=== PATIENT | male | born 1955 | race Caucasian/White ===

== ENCOUNTER → 2018-02-02 10:47 | Outpatient (CLI) | payer BC, SELFPAY ==
--- NOTE | 2018-02-02 10:55 | XR_ITS ---
XR chest 2V HISTORY: ITS.REASON: COUGH ORDERING PHYSICIAN: Suha Abernathy MD PATIENT AGE: 62 years Technique: PA and lateral chest COMPARISON: None available in PACS FINDINGS: Lungs clear no active disease. Heart normal size with donaldo and mediastinal structures satisfactory. No lesions. No masses. No pleural effusion or pleural findings. Chest wall intact. T-spine. No compression fractures. Mild anterior marginal osteophytes with minor degenerative changes. Very mild dextrocurvature T-spine noted..No acute bony abnormalities. IMPRESSION: Lungs clear. No active disease in the chest.
--- NOTE | 2018-02-02 10:55 | XR_ITS ---
XR elbow RT min 3V Ordering Physician: Suha Abernathy MD Patient Age: 62 years: Male HISTORY: ITS.REASON: RT ELBOW PAIN TECHNIQUE: 3 views right elbow COMPARISON :None FINDINGS . Joint spaces well-maintained. Radial head appears intact. No joint effusion. Normal anterior fat pad. . Minimal thin 5 mm length calcification extends longitudinally from the margin lateral epicondyle- May reflect minor old lateral epicondylitis. Clinical correlation required. This is best seen on the oblique view and sacrum is a similar image. Medial epicondyles unremarkable. Ulna and olecranon unremarkable -------IMPRESSION: 1. No acute findings. No fracture. No joint effusion 2. Minimal thin calcification from lateral epicondyle, may reflect old lateral epicondylitis
== END ==
PROVIDERS: PCP Family Medicine; Visit Provider Family Medicine
DX: R05 Cough (principal); M25.521 Pain in right elbow
CPT/HCPCS: 71046; 73080

== ENCOUNTER → 2018-06-01 16:08 | Outpatient (POV) | payer BC, SELFPAY | PROVIDERS: Visit Provider Family Medicine | DX: Z00.00 Encounter for general adult medical examination without abnormal findings (principal) ==

== ENCOUNTER → 2019-08-15 12:28 | Outpatient (CLI) | payer BC, SELFPAY ==
--- NOTE | 2019-08-15 12:32 | XR_ITS ---
PROCEDURE: XR HIP LT 2-3V W/PELVIS CLINICAL INDICATION: LT HIP PAIN COMPARISON: XR FEMUR LT 2V from 08/15/2019 FINDINGS: No acute fracture or dislocation is evident. There are minimal osteoarthritic changes of both hips, left SI joint, and there are facet arthritic changes at L4-5 greater on the right. There is a cystic area which appears intramedullary in the proximal aspect of the femur just distal to the intertrochanteric region which measures approximately 3.3 by 2 cm. The inferior margins are somewhat ill-defined with fairly well-defined superior margins. On the abduction view, there is a well-circumscribed lobular calcific density along the proximal femoral shaft anteriorly at 1.6 cm. IMPRESSION: 1. Minimal osteoarthritic change of the hips. No acute fracture. 2. Intramedullary cystic area of the proximal femur with ill-defined margins inferiorly. 3. Lobular calcific density along the anterior aspect of the proximal femur. This is within the adjacent soft tissues. The bony cortex appears intact at this region. 4. Suggest further evaluation with MRI without and with contrast. CT may also add further information. Dictated by: Carlos De Oliveira MD 08/15/2019 13:04 Electronically signed by Carlos De Oliveira MD in [place] 08/15/2019 13:04
== END ==
PROVIDERS: PCP Family Medicine; Visit Provider Family Medicine
DX: M25.552 Pain in left hip (principal)
CPT/HCPCS: 73502; 73552

== ENCOUNTER → 2019-08-16 11:08 | Outpatient (CLI) | payer BC, SELFPAY ==
--- NOTE | 2019-08-16 | CT_ITS ---
PROCEDURE: CT HIP LT WO/W CON CLINICAL HISTORY: ABN X-RAY Left-sided hip pain. Abnormal radiograph, possible lytic/sclerotic lesion of femur COMPARISON: XR HIP LT 2-3V W/PELVIS from 08/15/2019 XR FEMUR LT 2V from 08/15/2019 TECHNIQUE: Axial images are obtained without and with 75 mL Optiray 350 IV Axial images obtained with sagittal and coronal reformats. All CT scans at the facility use one or more dose reduction, viz: automated exposure control, ma/kV adjustment per patient size (including targeted exams where dose is matched to indication, i.e. head), or iterative reconstruction technique. FINDINGS: No acute fracture or dislocation is evident. There are minor osteoarthritic changes of both hips. No acute fracture or dislocation is evident. There are several small well-circumscribed cystic lesions of the hips 1 in the right femoral neck at 9 mm and 1 in the left intertrochanteric region of the femur at 4 mm. These have well-defined sclerotic margins and are consistent with benign cortical defect. There is a lucent/lytic lesion in the proximal shaft of the left femur. This is intramedullary in nature measuring 2 cm AP, 1.9 cm transverse, and 2.7 cm cephalad caudad. Most of this lesion is well-circumscribed except for the anteromedial margin. This part of the lesion is less well-defined. No internal matrix is evident. No soft tissue component. In addition, there are amorphous calcifications in the periosteal region along the posterior aspect of the proximal left femur. This is at the linea Aspera region. There is a erosion of the posterior aspect of the femoral cortex at this area of calcification. This area of erosion at least involves the outer and mid aspect of the cortex and extends to the inner part of the cortex but may not involve the intramedullary region. Review of the opposite side also shows some calcification of the right proximal linea Aspera but not as extensive as the left side but with some minimal cortical erosive change. No soft tissue masses are evident. There is mild calcification of the left femoral artery and there are small lymph nodes in the left inguinal area. Scattered diverticular present within the sigmoid colon. IMPRESSION: 1. 2.7 x 2 x 1.9 cm lucent/lytic lesion of the proximal left femur corresponding to the radiographic abnormality.. This is not a clearly benign appearing lesion with some ill definition of the lesion anterior medially. There is a thin rim of sclerosis of the remaining lesion without obvious internal matrix.. This could represent a nonossifying fibroma. A more ominous process such as metastasis or myeloma is not excluded and follow-up is suggested. Suggest MRI without and with contrast for further evaluation. 2. Para osteal calcification with erosive change of the left linea aspera as described above which may represent calcific enthesopathy/enthesitis with less extensive involvement on the right as well. Suggest follow-up to confirm stability. Dictated by: Carlos De Oliveira MD 08/17/2019 11:12 Electronically signed by Carlos De Oliveira MD in [place] 08/17/2019 11:12
[2019-08-16 11:29] LABS: Blood Urea Nitrogen 30 mg/dL (7-18); Creatinine,Serum 1.11 mg/dL (0.70-1.30); Estimated Glomerular Filt Rate 67 ml/min (>60); GFR (African American) 81 ML/MIN (>60)
== END ==
PROVIDERS: PCP Family Medicine; Visit Provider Family Medicine
DX: Z01.818 Encounter for other preprocedural examination (principal); R93.89 Abnormal findings on diagnostic imaging of other specified body structures; M25.552 Pain in left hip
CPT/HCPCS: 36415; 73702; 82565; 84520; Q9967

== ENCOUNTER → 2019-08-17 11:39 | Outpatient (CLI) | payer BC, SELFPAY ==
--- NOTE | 2019-08-17 11:42 | MR_ITS ---
PROCEDURE: MR HIP LT WO/W CON CLINICAL INDICATION: BONE MASS, left hip pain, abnormal radiograph and CT scan showing lytic and sclerotic lesion of the left proximal femur COMPARISON: CT HIP LT WO/W CON from 08/16/2019 TECHNIQUE: Routine multiplanar multi echo sequences are performed without and with gadolinium enhancement. FINDINGS: Once again, there is noted to be a fairly well-circumscribed lesion within the proximal shaft of the femur at 2.7 by 1.9 cm. This has homogeneous increased T1 signal. As seen on the CT scan the anterior medial margins are not as sharp as the remaining margins. No soft tissue component is evident. This is well-circumscribed and may show some minimal enhancement inferiorly. Stir images also show slight increase in signal. This is low density on the CT scan superiorly and does demonstrate fat suppression on the T1 fat suppressed images and may represent an intraosseous lipoma. Along the posterior and proximal aspect of the femoral shaft there are small foci of decreased T1 and T2 signal along the linea as para in the para cortical region of the proximal femur consistent with the calcifications as noted on the CT scan. A small area of cortical erosion is present within the posterior femoral cortex at this area as well. This does show increase in T2 signal in the surrounding soft tissues consistent with inflammatory changes. This also shows some in enhancement in the surrounding soft tissues. No acute fracture or dislocation is evident. IMPRESSION: 1. Abnormal MRI of the left hip. There are 2 separate lesions. 2. 2.7 x 1.9 cm fairly well-circumscribed fatty lesion of the proximal femur as described on the CT report. This could represent an intraosseous lipoma. No soft tissue component is evident. The medial margins are somewhat obscured and there is some slight increased in T2 signal of this lesion with some minimal enhancement inferiorly. This is adjacent to the inflammatory process and the proximal femoral shaft posteriorly. The increased signal and mild enhancement could be related to that fact. Cannot completely exclude the possibility of a neoplastic process. An abscess is felt to be less likely. 3. Extra cortical calcification along the proximal aspect of the left linea aspera with some cortical erosion and surrounding inflammation which may represent calcific enthesophytis. This is similar to the CT findings. 4. Neither 1 of these lesions is clearly benign-appearing. Suggest orthopedic consult and close imaging follow-up. Suggest serum electrophoresis and sedimentation rate as well. Dictated by: Carlos De Oliveira MD 08/18/2019 15:57 Electronically signed by Carlos De Oliveira MD in [place] 08/18/2019 15:57
== END ==
PROVIDERS: PCP Family Medicine; Visit Provider Family Medicine
DX: M89.8X9 Other specified disorders of bone, unspecified site (principal)
CPT/HCPCS: 73723; A9576

== ENCOUNTER → 2019-12-30 10:18 | Outpatient (CLI) | payer BC, SELFPAY ==
--- NOTE | 2019-12-30 10:25 | XR_ITS ---
PROCEDURE: XR KNEE RT 3V CLINICAL INDICATION: RT KNEE PAIN COMPARISON: No exams were available for comparison FINDINGS: No fracture or dislocation. No lytic or blastic change. There is normal mineralization. The joint spaces are well-preserved. No significant degenerative/arthritic changes. No erosive changes evident. Other findings:There is increased density in the suprapatellar region consistent with knee joint effusion. There are small sclerotic foci along the distal shaft of the femur and may be due to small area of bone infarction. There is very minimal spurring along the posterior patella suggesting minimal osteoarthritic change. IMPRESSION: 1. Small suprapatellar effusion with suspected minimal osteoarthritic change of the patellofemoral joint 2. 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
== END ==
PROVIDERS: PCP Family Medicine; Referring Provider Family Medicine; Visit Provider Family Medicine
DX: M25.561 Pain in right knee (principal)
CPT/HCPCS: 73562

== ENCOUNTER → 2020-12-04 14:21 | Outpatient (POV) | payer BC, SELFPAY | DX: Z00.00 Encounter for general adult medical examination without abnormal findings (principal) ==

== ENCOUNTER → 2021-01-24 06:55 | Outpatient (CLI) | payer SELFPAY ==
--- NOTE | 2021-01-24 07:09 | CT_ITS ---
PROCEDURE: CT HEART W CALCIUM SCORE CLINICAL HISTORY: SCREENING COMPARISON: CR CXR2V XR chest 2V from 02/02/2018 TECHNIQUE: Axial images obtained with sagittal and coronal reformats. All CT scans at the facility use one or more dose reduction, viz: automated exposure control, ma/kV adjustment per patient size (including targeted exams where dose is matched to indication, i.e. head), or iterative reconstruction technique. FINDINGS: Coronary artery calcium score is 1011. Extensive calcific plaque burden with very high cardiovascular disease risk Incidental note is made of a small granuloma in the right middle lobe region and degenerative changes of the thoracic spine. An exophytic I so density projects off the left kidney posteriorly incompletely imaged measuring at least 2.7 cm and may represent a renal cyst IMPRESSION: Extensive calcific plaque burden with very high cardiovascular disease risk Dictated by: Carlos De Oliveira MD 01/24/2021 08:40 Carlos De Oliveira MD in [place] 01/24/2021 08:40
== END ==
PROVIDERS: PCP Family Medicine; Visit Provider Family Medicine
DX: Z13.6 Encounter for screening for cardiovascular disorders (principal)
CPT/HCPCS: 75571

== ENCOUNTER → 2021-05-24 08:33 | Outpatient (CLI) | payer OTHER, SELFPAY | PROVIDERS: PCP Family Medicine; Visit Provider Family Medicine | DX: Z20.822 Contact with and (suspected) exposure to COVID-19 (principal) | CPT/HCPCS: C9803; U0003; U0005 ==

== ENCOUNTER → 2025-06-25 07:42 | Outpatient (CLI) | payer MEDICARE, SELFPAY ==
--- OUTSIDE RECORDS SUMMARY | 2024-03-25 05:15 | XMS_ITS ---
Author Organization [facility] Address [address] [facility] [address] [place] [id number] Care Team Providers Care Last Putter Away Name Role Phone Lachelle Abernathy Primary Care Provider [facility] Unavailable [phone] Results Component Value Reference Range Notes CBC Venipuncture (in house) Reviewed date:03/27/2024 02:52:28 PM Interpretation: Performing Lab: Notes/Report: wbc 6.2 3.5 - 10 lymph 20.5% 15 - 50 mid 5.1% 2 - 15 gran 74.4% 35 - 80 rbc 4.78 3.5 - 5.5 hgb 14.7 11.5 - 16.5 hct 43.1 35 - 55 mcv 90.2 75 - 100 mch 30.7 25 - 35 mchc 34.0 31 - 38 platlet 104 100 - 400 P-Comprehensive Metabolic Pa justyn (CMP) Reviewed date:03/30/2024 08:21:42 AM Interpretation:bun 29 Performing Lab: Notes/Report: Test performed by [facility] , [address], [place] [address] Erik Man MD, Director Of Accounts Receivable CLIA: [id number] Sodium 144 135-145 mmol/L Potassium 4.6 3.5-5.3 mmol/L Chloride 108 97-108 mmol/L CO2 24 22-32 mmol/L Glucose 95 65-99 mg/dL BUN 29 8-23 mg/dL Creatinine 1.18 0.70-1.30 mg/dL Calcium 9.7 8.6-10.4 mg/dL eGFR by Creatinine 67 >59 mL/min/1.73m2 Protein 7.1 6.0-8.3 g/dL Albumin 4.6 3.5-5.3 g/dL Alkaline Phosphatase 70 40-129 IU/L ALT (SGPT) 23 <5-55 IU/L AST (SGOT) 24 <5-46 IU/L Bilirubin, Total 0.8 <0.2-1.2 mg/dL A/G Ratio 1.8 1.1-2.5 P-Lipid Panel Reviewed date:03/30/2024 08:21:43 AM Interpretation:hdl 39 Performing Lab: Notes/Report: Test performed by [facility], [address] , [address], [place] [address] Erik Man MD, Director Of Accounts Receivable CLIA: [id number] Cholesterol 88 <200 mg/dL Triglycerides 68 <150 mg/dL HDL Cholesterol 39 >39 mg/dL Cholesterol / HDL Ratio 2.26 0.00-4.99 Ratio Non-HDL Cholesterol 49 <130 mg/dL LDL Cholesterol (Calculation) 35 <130 mg/dL LDL Cholesterol Levels* Less than 100 mg/dL Optimal 100 to 129 mg/dL Near Optimal/ Above Optimal 130 to 159 mg/dL Borderline High 160 to 189 mg/dL High 190 mg/dL and above Very High * Categories as recommended by the 2004 ATPIII guidelines LDL/HDL Ratio 0.9 <3.3 Ratio LDL Cholesterol Patient History Test Date: 09/03/2022 LDL Results: 34 Units: mg/dL % Change: - Test Date: 09/07/2023 LDL Results: 32 Units: mg/dL % Change: -5% Test Date: 03/25/2024 LDL Results: 35 Units: mg/dL % Change: +9% Miscell Ref Lab Test Reviewed date:03/29/2024 09:02:57 AM Interpretation: Performing Lab: Notes/Report: Test Cancelled Test Cancelled Other P-Protein Electrophoresis (s maria ines) with Interpretation, rfx JANETTE Reviewed date:03/30/2024 08:21:43 AM Interpretation:Normal Performing Lab: Notes/Report: Test performed by [facility] [address] , [facility], [place] [address] Erik Man MD, Director Of Accounts Receivable CLIA: [id number] The original report may contain illustrative images, which are not display compatible on this electronic information system. Some pathology reports may include tabular data or cancer checklists which also can not be displayed. A copy of the original report incorporating such images is available and can be obtained upon request from client services. Protein 7.1 6.0-8.3 g/dL Albumin 4.50 3.55-5.01 g/dL Alpha 1 Globulin 0.20 0.19-0.46 g/dL Alpha 2 Globulin 0.60 0.48-1.05 g/dL Beta Globulin 0.90 0.48-1.10 g/dL Gamma Region 1.00 0.62-1.51 g/dL Protein Electrophoresis Interpretation SEE COMMENT No definite monoclon al immunoglobulins detected.Pathologist Reviewed NSK P-PSA Reviewed date:03/30/2024 08:21:43 AM Interpretation:6.3 Performing Lab: Notes/Report: Test performed by [facility] [address] [place] [address] , [address], [place] [address] Erik Man MD, Director Of Accounts Receivable CLIA: [id number] PSA 6.30 <4.00 ng/mL Please note this is an ultrasensitive PSA assay with a lower limit of detection of 0.014 ng/mL. This test is performed by the Kevin ECLIA methodology. Values obtained with different assay methods or kits cannot be directly compared. P-Protein Electrophoresis Reviewed date:03/29/2024 09:02:39 AM Interpretation: Performing Lab: Notes/Report: REASON FOR VISIT BLOOD WORK Problems Problem Type SNOMED Code ICD Code Onset Dates Problem Status W/U Status Risk Notes Problem Peripheral neuropathy (825275039) Peripheral neuropathy (G62.9) Active confirmed Encounters Encounter Location Date Provider Diagnosis [facility] [address] [facility] 36 [facility] [address] [place], [place] [id number] 03/25/2024 [facility] Dyslipidemia E78.5 ; Peripheral neuropathy G62.9 and Elevated PSA R97.20 Assessments Encounter Date Diagnosis (ICD Code) Assessment Notes Treatment Notes Treatment Clinical Notes Section Notes 03/25/2024 Dyslipidemia (ICD-10 - E78.5) 03/25/2024 Peripheral neuropathy (ICD-10 - G62.9) 03/25/2024 Elevated PSA (ICD-10 - R97.20) Plan Of Treatment No Information Progress Notes * Marquis BRYANTDOB:1 07/20/1954 (70 yo M)Acc No.[id number]:03/25/2024 Patient: Marquis PAIGE Provider: Vipul Seals M.D. :1955 A ge:68 Y S ex:Male Date:03/25/2024 Address:[address] [place], [place] [id number] Pcp:Lachelle Abernathy Subjective: * Chief Complaints: * 1 . BLOOD WORK. * Medical History: Objective: * Vitals: Assessment: * Assessment: 1. D yslipidemia - E78.5 (Primary) 2 . P eripheral neuropathy - G62.9 ? 3 . E levated PSA - R97.20 Plan: * Treatment: Value Reference Range A /G Ratio 1.8 1.1-2.5 - * A lbumin 4.6 3.5-5.3 - g/dL * A lkaline Phosphatase 70 40-129 - IU/L * A LT (SGPT) 23 <5-55 - IU/L * A ST (SGOT) 24 <5-46 - IU/L * B ilirubin, Total 0.8 <0.2-1.2 - mg/dL * B UN 29 H 8-23 - mg/dL * C alcium 9.7 8.6-10.4 - mg/dL * C hloride 108 97-108 - mmol/L * C O2 24 22-32 - mmol/L * C reatinine 1.18 0.70-1.30 - mg/dL * G lucose 95 65-99 - mg/dL * P otassium 4.6 3.5-5.3 - mmol/L * S odium 144 135-145 - mmol/L * P rotein 7.1 6.0-8.3 - g/dL * e GFR by Creatinine 67 >59 - mL/min/1.73m2 * Aimee Bryant 03/30/2024 8 :21:26 AM >reviewed ?LAB: P-Lipid Panel (Collection Date & Time - 03/25/2024 08:33 AM)?hdl 39* Value Reference Range C holesterol / HDL Ratio 2.26 0.00-4.99 - Ratio * C holesterol 88 <200 - mg/dL * H DL Cholesterol 39 L >39 - mg/dL * L DL Cholesterol (Calculation) 35 <130 - mg/d L * L DL/HDL Ratio 0.9 <3.3 - Ratio * N on-HDL Cholesterol 49 <130 - mg/dL * T riglycerides 68 <150 - mg/dL * Aimee Bryant 03/30/2024 8 :21:26 AM >reviewed 2.?Peripheral neuropathy?LAB: CBC Venipuncture (in house) (Collection Date & Time - 03/25/2024)* Value Reference Range w bc 6.2 3.5 - 10 * l ymph 20.5% 15 - 50 * m id 5.1% 2 - 15 * g ran 74.4% 35 - 80 * r bc 4.78 3.5 - 5.5 * h gb 14.7 11.5 - 16.5 * h ct 43.1 35 - 55 * m cv 90.2 75 - 100 * m ch 30.7 25 - 35 * m chc 34.0 31 - 38 * p latlet 104 100 - 400 * Judit Oneil 03/25/2024 8:58 :31 AM > , Provider reviewed results while patient in office. ?LAB: P-Protein Electrophoresis (Collection Date & Time - 03/29/2024)* see duplicate order 3.?Elevated PSA?LAB: P-PSA (Collection Date & Time - 03/25/2024 08:33 AM)?6.3* Value Reference Range P SA 6.30 H <4.00 - ng/mL * Aimee Bryant 03/30/2024 8 :21:26 AM >reviewed * Labs: * L ab: P-Protein Electrophoresis (serum) with Interpretation, rfx JANETTE (Collection Date & Time - 03/25/2024 08:33 AM) N ormal Value Reference Range P rotein Electrophoresis Interpretation SEE COMMENT - * A lpha 1 Globulin 0.20 0.19-0.46 - g/dL * A lpha 2 Globulin 0.60 0.48-1.05 - g/dL * A lbumin 4.50 3.55-5.01 - g/dL * B eta Globulin 0.90 0.48-1.10 - g/dL * G bobby Region 1.00 0.62-1.51 - g/dL * P rotein 7.1 6.0-8.3 - g/dL * [employer] IT support 03/28/2024 05:10:04 : This order was created by the Interface. Aimee Bryant 03/30/2024 8:21:26 AM >reviewed ?Lab: Miscell Ref Lab Test (Collection Date & Time - 03/25/2024 08:33 AM)* Value Reference Range T est Cancelled Test Cancelled - * Davi, IT support 03/28/2024 05:10:05 : This order was created by the Interface. * Procedure Codes: 8 5025 CBC WITH AUTO DIFF, 38151 VENIPUNCT, ROUTINE*, 25872 ASSAY OF SERUM PROTEINS * Images: Billing Information: * Visit Code: * Procedure Codes: 75665 CBC WITH AUTO DIFF. 23541 VENIPUNCT, ROUTINE*. 13528 ASSAY OF SERUM PROTEINS. * Electronic signature of Ekaterina Seals MD on 06/25/2025 at 07:45 AM EST Sign off status: Pending * Provider: Vipul Seals M.D. Date: 0 03/25/2024 Generated for Lisandra otoole/Marvin/Hubert on: 1 08/26/2024 07:45 AM EST
--- OUTSIDE RECORDS SUMMARY | 2024-05-12 02:50 | XMS_ITS ---
Author Organization [facility] [address] [facility] [address] [place] [id number] Care Team Providers Care Data Processing Clerk Name Role Phone Lachelle Abernathy Primary Care Provider REASON FOR VISIT FLU VAX Medications Medication SIG (Take, Route, Frequency, Duration) Notes Start Date End Date Status Cipro 500 MG 1 tab(s) orally ever y 12 hours 01/02/2019 Not-Taking Ciprofloxacin-dexAMETHason e 0.3-0.1 % 4 gtt in each affected ear 2 times a day; Duration: 7 day(s) 05/02/2018 Not-Taking Cefdinir 300 MG 1 cap(s) orally bid; Duration: 10 day(s) 09/14/2015 Not-Taking metroNIDAZOLE 500 MG 1 tab(s) orally 3 times a day 10/30/2019 Not-Taking Levaquin 750 MG 1 tab(s) orally ever y 24 hours 10/30/2019 Not-Taking Meloxicam 15 MG 1 tab(s) orally once a day; Duration: 30 day(s) 06/08/2019 Not-Taking Lomotil 2.5-0.025 MG 1 tab(s) orally 4 times a day prn 01/02/2019 Not-Taking Promethazine HCl 25 MG 1 tab(s) orally e very 6 hours prn 01/02/2019 Not-Taking Ondansetron HCl 4 MG 1 tab(s) orally nusrat ry 8 hours 08/14/2019 Not-Taking predniSONE 20 MG 1 tab(s) orally tid 08/14/2019 Not-Taking Rosuvastatin Calcium 20 mg 1 tablet Oral ly Once a day Active Ramipril 2.5 mg TAKE ONE CAPSULE BY MOUTH EVERY DAY; Duration: 90 Not-Taking Immunizations Vaccine Route Administration Date Status Comme nts Fluzone High Dose (65yr and older) IM Intramuscular 05/12/2024 Administered Encounters Encounter Location Date Provider Diagnosis [facility] [address] [facility] [address] [place] [id number] 05/12/2024 Lachelle Abernathy Encounter for immunization Z23 Assessments Encounter Date Diagnosis (ICD Code) Assessment Notes Treatment Notes Treatment Clinical Notes Section Notes 05/12/2024 Encounter for immunization (ICD-10 - Z23) Plan Of Treatment No Information Progress Notes * Marquis BRYANTDOB:1 07/20/1954 (70 yo M)Acc No.[id number]:05/12/2024 Patient: Marquis PAIGE Provider: Lachelle Abernathy M.D. :1955 A ge:68 Y S ex:Male Date:05/12/2024 Address:[address] [place] [address], [id number] Subjective: * Chief Complaints: * 1 . FLU VAX. * Medical History: * Medications: T aking Rosuvastatin Calcium 20 mg Tablet 1 tablet Orally Once a day , Not-Taking Ramipril 2.5 mg Capsule TAKE ONE CAPSULE BY MOUTH EVERY DAY , Not-Taking Promethazine HCl 25 MG Tablet 1 tab(s) orally every 6 hours prn , Not-Taking Lomotil 2.5- 0.025 MG Tablet 1 tab(s) orally 4 times a day prn , Not-Taking Meloxicam 15 MG Tablet 1 tab(s) orally once a day , Not-Taking predniSONE 20 MG Tablet 1 tab(s) orally tid , Not-Taking Ondansetron HCl 4 MG Tablet 1 tab(s) orally every 8 hours , Not- Taking Levaquin 750 MG Tablet 1 tab(s) orally every 24 hours , Not-Taking metroNIDAZOLE 500 MG Tablet 1 tab(s) orally 3 times a day , Not-Taking Cefdinir 300 MG Capsule 1 cap(s) orally bid , Not-Taking Ciprofloxacin-dexAMETHasone 0.3-0.1 % Suspension 4 gtt in each affected ear 2 times a day , Not-Taking Cipro 500 MG Tablet 1 tab(s) orally every 12 hours , Medication List reviewed and reconciled with the patient Objective: * Vitals: Assessment: * Assessment: 1. E ncounter for immunization - Z23 (Primary) Plan: * Treatment: * Immunizations: Fluzone High Dose (65yr and older) : 0.5 mL (Route: Intramuscular) given by Muna Hester on Left Deltoid (Encounter for immunization) * Images: Billing Information: * Visit Code: * Procedure Codes: * Electronic signature of Lachelle Abernathy MD on 06/25/2025 at 07:45 AM EST Sign off status: Pending * Provider: Lachelle Abernathy M.D. Date: 1 Generated for Lisandra otoole/Marvin/Uyenitting on: 08/26/2024 07:45 AM EST
--- OUTSIDE RECORDS SUMMARY | 2024-08-08 03:30 | XMS_ITS ---
Author Organization [facility] Address 1210 [facility] [address] [place] [id number] Care Team Providers Care Editor Map Name Role Phone Lachelle Abernathy Primary Care Provider [facility] [phone] REASON FOR VISIT ppd only Medications Medication SIG (Take, Route, Frequency, Duration) Notes Start Date End Date Status Rosuvastatin Calcium 20 mg 1 tablet Orally Once a day; Duration: 90 days Active Meloxicam 15 MG 1 tab(s) orally once a day; Duration: 30 day(s) 06/08/2019 Not-Taking Ramipril 2.5 mg TAKE ONE CAPSULE BY MOUTH EVERY DAY; Duration: 90 Not-Taking Immunizations Vaccine Route Administration Date Status Comme nts tuberculin (ppd) ID Intradermal 08/08/2024 Administered Encounters Encounter Location Date Provider Diagnosis [place] [facility] [address] [place] [id number] 08/08/2024 [facility] 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 :1955 A ge:69 Y S ex:Male Date:08/08/2024 Address:[address] [place], [place] [address] [facility] Pcp:Lachelle Abernathy Subjective: * Chief Complaints: * 1 . Ppd only. * Medical History: * Medications: T aking Rosuvastatin Calcium 20 mg Tablet 1 tablet Orally Once a day , Not-Taking Ramipril 2.5 mg Capsule TAKE ONE CAPSULE BY MOUTH EVERY DAY , Not-Taking Meloxicam 15 MG Tablet 1 tab(s) orally once a day , Medication List reviewed and reconciled with the patient Objective: * Vitals: Assessment: * Assessment: 1. 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 * Electronic signature of Ekaterina Seals MD on 06/25/2025 at 07:45 AM EST Sign off status: Pending * Provider: Vipul Seals M.D. Date: 0 08/08/2024 Generated for Lisandra otoole/Marvin/Ilanasmitting on: 08/26/2024 07:45 AM EST
--- OUTSIDE RECORDS SUMMARY | 2024-08-10 03:30 | XMS_ITS ---
Author Organization [facility] Address 1210 [facility] [address] [place] [id number] Care Team Providers Care Supervisor Whipped Topping Name Role Phone Lachelle Abernathy Primary Care Provider [phone] [facility] [phone] REASON FOR VISIT read ppd Encounters Encounter Location Date Provider Diagnosis [place] [address] [place] [address] [facility] [address] [place] [id number] 08/10/2024 [facility] Plan Of Treatment No Information Progress Notes * Marquis BRYANTDOB:1 07/20/1954 (70 yo M)Acc No.[id number]:08/10/2024 Progress notes Patient: Jesus NAVARRO Marquis GARDNER Provider: Vipul Seals M.D. :1955 A ge:69 Y S ex:Male Date:08/10/2024 Address:[facility] [place] [facility] Pcp:Lachelle Abernathy Subjective: * Chief Complaints: * 1 . Read ppd. * Medical History: Objective: * Vitals: Assessment: Plan: * Treatment: * Images: Billing Information: * Visit Code: * Procedure Codes: * Electronic signature of Ekaterina Seals MD on 06/25/2025 at 07:45 AM EST Sign off status: Pending * Provider: Vipul Seals M.D. Date: 0 08/10/2024 Generated for Lisandra otoole/Marvin/eTransmitting on: 08/26/2024 07:45 AM EST
--- OUTSIDE RECORDS SUMMARY | 2024-10-20 06:00 | XMS_ITS ---
Author Organization [facility] Address [address] [place] [id number] Care Team Providers Care Lead Clinical Research Coordinator Name Role Phone Lachelle Abernathy Primary Care Provider Allergies No Known Allergies REASON FOR VISIT pre-Op H/P Medications Medication SIG (Take, Route, Frequency, Duration) Notes Start Date End Date Status Rosuvastatin Calcium 20 mg 1 tablet Orally Once a day; Duration: 90 days Active Ramipril 2.5 mg TAKE ONE CAPSULE BY MOUTH EVERY DAY; Duration: 90 Not-Taking Meloxicam 15 MG 1 tab(s) orally once a day; Duration: 30 day(s) 06/08/2019 Not-Taking Problems Problem Type SNOMED Code ICD Code Onset Dates Problem Status W/U Status Risk Notes Problem Cataract (496131389) Cataracts, bilateral (H26.9) Active confirmed Problem Retinal disorder (30928720) Retinal disease, 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) Active confirmed Vital Signs Blood pressure systolic 122 mm Hg 10/21/19 25 Blood pressure diastolic 78 mm Hg 025 Heart Rate 62 /min 10/20/2024 Weight 212.6 lbs 10/20/2024 Encounters Encounter Location Date Provider Diagnosis [place] 1210 [facility] [address] [place] [id number] 10/20/2024 Lachelle Abernathy Pre-op evaluation Z01.818 ; Cataracts, bilateral H26.9 ; Retinal disease, bilateral H35.9 ; Elevated PSA R97.20 and Dyslipidemia E78.5 Assessments Encounter Date Diagnosis (ICD Code) Assessment Notes Treatment Notes Treatment Clinical Notes Section Notes 10/20/2024 Pre-op evaluation (ICD-10 - Z01.818) CLEARED FOR SURGERY 10/20/2024 Cataracts, bilateral (ICD-10 - H26.9) 10/20/2024 Retinal disease, bilateral (ICD-10 - H35.9) 10/20/2024 Elevated PSA (ICD-10 - R97.20) Repeat PSA 10/20/2024 Dyslipidemia (ICD-10 - E78.5) Plan Of Treatment Treatment Notes Assessment Notes Pre-op evaluation CLEARED FOR SURGERY Elevated PSA Repeat PSA Next Appt Details Follow Up: prn, Reason: Progress Notes * Marquis BRYANTDOB:1 07/20/1954 (70 yo M)Acc No.[id number]:10/20/2024 Physical Patient: Marquis PAIGE Provider: Lachelle Abernathy M.D. :1955 A ge:69 Y S ex:Male Date:10/20/2024 Address:[address] [place] [address], [facility] Subjective: * Chief Complaints: * 1 . pre-Op H/P. * HPI: A dult Pre-Op physical: 69 year old male presents with c/o Procedure: P t sts he is scheduled for bilateral cataracts. Pt sts he is having the left side done first and then the right two weeks later. He is followed by [facility] (Dr. Luciano) for epi-retinal membrane disease.. c/o Date of Procedure: P t sts he is having the first one done on November 03, and sts the right eye is November 15. c/o Name of Surgeon: P t sts Dr. Potter is doing the procedure. * ROS: C ARDIOLOGY: no C hest pain. n o P alpitations. G ASTROENTEROLOGY: no V omiting. n o D iarrhea. U ROLOGY: no D ifficulty urinating. n o B lood in urine. * Medical History: Rg Boggs, Cardiology eval in July 2024, EKG, elevated PSA, Bilateral epiretinal membrane - Dr. Camarillo. * Surgical History: T &A - Dr. Elliott 1961, Excision of osteochondroma left proximal tibia - Dr. Ophelia Dudley 06/1973, Right inguinal herniorrhaphy - Dr. Graff 08/30/2024. * Family History: F ather: . M other: . 1 sister(s) . 2 son(s) , 2 daughter(s) . . Father Multiple Myeloma. Mother Dementia. * Social History: C URRENT TOBACCO USE S moking Status: P atient does NOT smoke. C affeine: yes, frequency:1 cup of coffee a day. Home smoke detector use: yes. Marital Status: . Alcohol: Yes, Type: , Frequency: ,Years: , Determination:, rare. * Medications: T aking Rosuvastatin Calcium 20 mg Tablet 1 tablet Orally Once a day , Not-Taking Ramipril 2.5 mg Capsule TAKE ONE CAPSULE BY MOUTH EVERY DAY , Not-Taking Meloxicam 15 MG Tablet 1 tab(s) orally once a day , Medication List reviewed and reconciled with the patient * Allergies: N .K.D.A. Objective: * Vitals: W t: 212.6, Temp: 97.8, BP: 122/78, HR: 62, O2 Sat: 97% on RA, Nurse: SIMON. * Examination: G eneral Examination: General Appearance: N AD. H EENT: u nremarkable , Sclera and conjunctiva clear , PERRLA, bilateral cataract opacities present, more prominent OS and with retinal changes evident OS , TM's normal. O ral cavity: n o lesions, mucosa moist and WNL, no erythema. N lisy: s upple, no lymphadenopathy. C hest: n ormal shape and expansion. H eart: R SR, no murmurs, no ectopics, DG=941/74. L ungs: c lear to auscultation. A bdomen: s oft and nontender , no organomegaly or masses. N eurologic Exam: I ntact, gait normal. S kin: n ormal, no rash. P eripheral pulses: n ormal. B ack:?multiple seborrheic keratoses, large one right lower chest 2.5 x 1.5 cm. E xtremities: no leg edema. G enitalia: a nus normal , no rectal lesions , prostate only slightly enlarged , prostate boggy , no nodularity. Assessment: * Assessment: 1. P re-op evaluation - Z01.818 (Primary) 2 . C ataracts, bilateral - H26.9? 3. R etinal disease, bilateral - H35.9 4 . E levated PSA - R97.20 5 . D yslipidemia - E78.5 Plan: * Treatment: 2. E levated PSA Notes: Repeat PSA * Procedure Codes: 3 074F SYST BP LT 130 MM HG, 3078F DIAST BP < 80 MM HG * Follow Up: p rn * Images: Billing Information: * Visit Code: 15805 Office Visit, Est Pt., Level 4. * Procedure Codes: 3074F SYST BP LT 130 MM HG. 3078F DIAST BP < 80 MM HG. * Electronic signature of Lachelle Abernathy MD on 06/25/2025 at 07:44 AM EST Sign off status: Pending * Provider: Lachelle Abernathy M.D. Date: 0 10/20/2024 Generated for Lisandra otoole/Marvin/Hubert on: 1 08/26/2024 07:44 AM EST History and Physical Notes * HPI (History of Present Illness) Category Sub-Category Detail Notes Category Not es Adult Pre-Op physical Procedure: Pt sts he is scheduled for bilateral cataracts. Pt sts he is having the left side done first and then the right two weeks later. He is followed by [facility] (Dr. Luciano) for epi-retinal membrane disease. Date of Procedure: Pt sts he is having the first one done on November 03, and sts the right eye is November 15 Name of Surgeon: Pt sts Dr. Potter i s doing the procedure Examination Category Sub-Category Detail Notes Category Not es General Examination HEENT: unremarkable , Sclera and conjunctiva clear , PERRLA, bilateral cataract opacities present, more prominent OS and with retinal changes evident OS , TM's normal Heart: RSR, no murmurs, no ectopics, SW=452/74 Lungs: clear to auscultatio n Abdomen: soft and nontender , no organomegaly or masses Extremities: no leg edema General Appearance: NAD Skin: normal, no rash Neurologic Exam: Intact, gait normal Neck: supple, no lymphaden opathy Oral cavity: no lesions, mucosa m oist and WNL, no erythema Peripheral pulses: normal Back: multiple seborrheic keratoses, large one right lower chest 2.5 x 1.5 cm Genitalia: anus normal , no rec samy lesions , prostate only slightly enlarged , prostate boggy , no nodularity Chest: normal shape and exp ansion
--- OUTSIDE RECORDS SUMMARY | 2024-10-24 07:45 | XMS_ITS ---
Author Organization [facility] Address [facility] [address] [place] [id number] Care Team Providers Care Leather Staker Name Role Phone Lachelle Abernathy Primary Care Provider Results Component Value Reference Range Notes CBC Venipuncture (in house) Reviewed date:10/30/2024 04:22:48 PM Interpretation: Performing Lab: Notes/Report: wbc 5.1 3.5 - 10 lymph 22.9 15 - 50 mid 5.3 2 - 15 gran 71.8 35 - 80 rbc 4.98 3.5 - 5.5 hgb 15.4 11.5 - 16.5 hct 45.6 35 - 55 mcv 91.4 75 - 100 mch 31.0 25 - 35 mchc 33.9 31 - 38 platlet 72 100 - 400 P-Comprehensive Metabolic Pa justyn (CMP) Reviewed date:12/24/2024 08:35:25 PM Interpretation:BUN 25 Performing Lab: Notes/Report: Test performed by [facility], [place] [address] [place] [address] , [address], [place] [address] Erik Man MD, Senior Training And Development Rep CLIA: [id number] Sodium 143 135-145 mmol/L Potassium 4.6 3.5-5.3 mmol/L Chloride 106 97-108 mmol/L CO2 22 22-32 mmol/L Glucose 95 65-99 mg/dL BUN 25 8-23 mg/dL Creatinine 1.10 0.70-1.30 mg/dL Calcium 9.7 8.6-10.4 mg/dL eGFR by Creatinine 73 >59 mL/min/1.73m2 Protein 7.4 6.0-8.3 g/dL Albumin 4.8 3.5-5.3 g/dL Alkaline Phosphatase 85 40-129 IU/L ALT (SGPT) 24 <5-55 IU/L AST (SGOT) 25 <5-46 IU/L Bilirubin, Total 0.5 <0.2-1.2 mg/dL A/G Ratio 1.8 1.1-2.5 P-PSA Reviewed date:12/24/2024 08:35:25 PM Interpretation:7.51 Performing Lab: Notes/Report: Test performed by [facility] [address] [place] [address] , [address], [place] [address] Erik Man MD, Senior Training And Development Rep CLIA: [id number] PSA 7.51 <4.00 ng/mL Please note this is an ultrasensitive PSA assay with a lower limit of detection of 0.014 ng/mL. This test is performed by the [employer] ECLIA methodology. Values obtained with different assay methods or kits cannot be directly compared. REASON FOR VISIT Pre-Op Labs Encounters Encounter Location Date Provider Diagnosis [facility] 1210 [facility] 36 [facility] [address] [place] [id number] 10/24/2024 Lachelle Abernathy Pre-op evaluation Z01.818 ; Cataracts, bilateral H26.9 and Elevated PSA R97.20 Assessments Encounter Date Diagnosis (ICD Code) Assessment Notes Treatment Notes Treatment Clinical Notes Section Notes 10/24/2024 Pre-op evaluation (ICD-10 - Z01.818) CLEARED FOR SURGERY 10/24/2024 Cataracts, bilateral (ICD-10 - H26.9) 10/24/2024 Elevated PSA (ICD-10 - R97.20) Repeat PSA Plan Of Treatment Treatment Notes Assessment Notes Pre-op evaluation CLEARED FOR SURGERY Elevated PSA Repeat PSA Progress Notes * WIL, Marquis GARDNERDOB:1 07/20/1954 (70 yo M)Acc No.[id number]:10/24/2024 Patient: Marquis PAIGE JJ Provider: Lachelle Abernathy M.D. :1955 A ge:69 Y S ex:Male Date:10/24/2024 Address:[address] [place] [address] itz [id number] Subjective: * Chief Complaints: * 1 . Pre-Op Labs. * Medical History: Objective: * Vitals: Assessment: * Assessment: 1. P re-op evaluation - Z01.818 (Primary) 2 . C ataracts, bilateral - H26.9? 3. E levated PSA - R97.20 Plan: * Treatment: Value Reference Range A /G Ratio 1.8 1.1-2.5 - * A lbumin 4.8 3.5-5.3 - g/dL * A lkaline Phosphatase 85 40-129 - IU/L * A LT (SGPT) 24 <5-55 - IU/L * A ST (SGOT) 25 <5-46 - IU/L * B ilirubin, Total 0.5 <0.2-1.2 - mg/dL * B UN 25 H 8-23 - mg/dL * C alcium 9.7 8.6-10.4 - mg/dL * C hloride 106 97-108 - mmol/L * C O2 22 22-32 - mmol/L * C reatinine 1.10 0.70-1.30 - mg/dL * G lucose 95 65-99 - mg/dL * P otassium 4.6 3.5-5.3 - mmol/L * S odium 143 135-145 - mmol/L * P rotein 7.4 6.0-8.3 - g/dL * e GFR by Creatinine 73 >59 - mL/min/1.73m2 ?LAB: CBC Venipuncture (in house) (Collection Date & Time - 10/26/2024)* Value Reference Range w bc 5.1 3.5 - 10 * l ymph 22.9 15 - 50 * m id 5.3 2 - 15 * g ran 71.8 35 - 80 * r bc 4.98 3.5 - 5.5 * h gb 15.4 11.5 - 16.5 * h ct 45.6 35 - 55 * m cv 91.4 75 - 100 * m ch 31.0 25 - 35 * m chc 33.9 31 - 38 * p latlet 72 100 - 400 * Antonia Bowles 10/26/2024 08:3 8:39 AM > Provider reviewed results while patient in office. Notes: CLEARED FOR SURGERY??2.?Elevated PSA?LAB: P-PSA (Collection Date & Time - 10/24/2024 12:02 PM)?7.51* Value Reference Range P SA 7.51 H <4.00 - ng/mL Notes: Repeat PSA?? * Procedure Codes: 8 5025 CBC WITH AUTO DIFF, 01489 VENIPUNCT, ROUTINE* * Images: Billing Information: * Visit Code: * Procedure Codes: 50752 CBC WITH AUTO DIFF. 43314 VENIPUNCT, ROUTINE*. * Electronic signature of Lachelle Abernathy MD on 06/25/2025 at 07:46 AM EST Sign off status: Pending * Provider: Lachelle Abenrathy M.D. Date: 0 10/24/2024 Generated for Elviei ng/Marvin/eTransmitting on: 1 08/26/2024 07:46 AM EST
--- OUTSIDE RECORDS SUMMARY | 2025-05-08 04:00 | XMS_ITS ---
Author Organization [facility] Address 1210 [facility] [address] [place] [id number] Care Team Providers Care Jet Piercer Operator Name Role Phone Lachelle Abernathy Primary Care Provider Results Component Value Reference Range Notes CBC Fingerstick (in house) Reviewed date:05/08/2025 12:52:20 PM Interpretation: Performing Lab: Notes/Report: wbc 6.1 3.5 - 10 lym 19.0% 15 - 50 mid 5.4% 2 - 15 gran 75.6% 35 - 80 rbc 4.99 3.5 - 5.5 hgb 15.4 11.5 - 16.5 hct 45.7 35 - 55 mcv 91.6 75 - 100 mch 31.0 25 - 35 mchc 33.8 31 - 38 plat 109 100 - 400 P-Comprehensive Metabolic Pa justyn (CMP) Reviewed date:05/23/2025 08:10:09 PM Interpretation:Normal Performing Lab: Notes/Report: Test performed by [facility], [facility] [employer] [address] [place] [address] , [address], [place] [address] Erik Man MD, Gasoline Engine Assembler CLIA: [id number] Sodium 141 135-145 mmol/L Potassium 4.5 3.5-5.3 mmol/L Chloride 105 97-108 mmol/L CO2 27 20-32 mmol/L Glucose 92 65-99 mg/dL BUN 21 8-23 mg/dL Creatinine 1.18 0.70-1.30 mg/dL Calcium 9.7 8.6-10.4 mg/dL eGFR by Creatinine 67 >59 mL/min/1.73m2 Protein 6.8 6.0-8.3 g/dL Albumin 4.3 3.5-5.3 g/dL Alkaline Phosphatase 74 40-129 IU/L ALT (SGPT) 20 <5-55 IU/L AST (SGOT) 25 <5-46 IU/L Bilirubin, Total 0.8 <0.2-1.2 mg/dL A/G Ratio 1.7 1.1-2.5 P-Lipid Panel Reviewed date:05/23/2025 08:10:09 PM Interpretation:LDL 40 Performing Lab: Notes/Report: Test performed by [facility], [address] , [place] [address] Erik Man MD, Gasoline Engine Assembler CLIA: [id number] Lipid Panel Footnote See Below *Based on optimal reference values. Please refer to the DOS for additional information regarding diagnostic lipid reference ranges, patient management based on the recently updated lipid guidelines ([place] [employer]/[place] [employer] Association Task Force on Clinical Practice Guidelines (2018), and pediatric diagnostic lipid reference values (<18 years old). Total Cholesterol 97 <200 mg/dL Triglycerides 81 <150 mg/dL HDL Cholesterol 41 >40 mg/dL Total Cholesterol / HDL Ratio* 2.37 <4.99 Ratio Non-HDL Cholesterol 56 <130 mg/dL LDL Cholesterol (Calculation) 40 <100 mg/dL LDL / HDL Ratio* 0.97 <2.49 Ratio LDL Cholesterol Patient History Test Date: 09/07/2023 LDL Results: 32 Units: mg/dL % Change: -5% Test Date: 03/25/2024 LDL Results: 35 Units: mg/dL % Change: +9% Test Date: 05/08/2025 LDL Results: 40 Units: mg/dL % Change: +14% P-PSA Reviewed date:05/23/2025 08:10:09 PM Interpretation:8.42 Performing Lab: Notes/Report: Test performed by [facility] [address] [place], [place] [address] [place] , [address], [place] [address] Erik Man MD, Gasoline Engine Assembler CLIA: [id number] PSA 8.42 <4.00 ng/mL Please note this is an ultrasensitive PSA assay with a lower limit of detection of 0.014 ng/mL. This test is performed by the [employer] ECLIA methodology. Values obtained with different assay methods or kits cannot be directly compared. P-Microalbumin/Creatinine, R andom Urine Sample Reviewed date:05/23/2025 08:10:09 PM Interpretation:Normal Performing Lab: Notes/Report: Test performed by [facility] [address] [place], [place] [address] [place] [address], [place] [address] Erik Man MD, Gasoline Engine Assembler CLIA: [id number] Albumin/Creatinine Ratio, Urine 6 0-30 ug/mg Microalbumin, Urine, Random 1.0 Creatinine, Urine 180.0 [id number] Reviewed date:05/23/2025 08:10:09 PM Interpretation:Normal Performing Lab: Notes/Report: Test performed by [facility] [address] [place], [place] [address] [place] , [address], [place] [address] Erik Man MD, Gasoline Engine Assembler CLIA: [id number] Cystatin C, Serum 0.96 0.71-1.21 mg/L REASON FOR VISIT Blood Work Medications Medication SIG (Take, Route, Frequency, Duration) Notes Start Date End Date Status Rosuvastatin Calcium 20 mg 1 tablet Orally Once a day; Duration: 90 days Active Ramipril 2.5 mg TAKE ONE CAPSULE BY MOUTH EVERY DAY; Duration: 90 Not-Taking Meloxicam 15 MG 1 tab(s) orally once a day; Duration: 30 day(s) 06/08/2019 Not-Taking Encounters Encounter Location Date Provider Diagnosis [facility] [address] [place] [phone] 05/08/2025 Lachelle Abernathy Abnormal kidney function N28.9 ; Dyslipidemia E78.5 ; Vitamin D deficiency E55.9 and Abnormal PSA R97.20 Assessments Encounter Date Diagnosis (ICD Code) Assessment Notes Treatment Notes Treatment Clinical Notes Section Notes 05/08/2025 Abnormal kidney function (ICD-10 - N28.9) 05/08/2025 Dyslipidemia (ICD-10 - E78.5) 05/08/2025 Vitamin D deficiency (ICD-10 - E55.9) 05/08/2025 Abnormal PSA (ICD-10 - R97.20) Plan Of Treatment No Information Progress Notes * Marquis BRYANT JJDOB:1 07/20/1954 (70 yo M)Acc No.[id number]:05/08/2025 Patient: Marquis PAIGE Provider: Lachelle Abernathy M.D. :1955 A ge:69 Y S ex:Male Date:05/08/2025 Address:[address] [place] [address], [id number] Subjective: * Chief Complaints: * 1 . Blood Work. * Medical History: * Medications: T aking Rosuvastatin Calcium 20 mg Tablet 1 tablet Orally Once a day , Not-Taking Ramipril 2.5 mg Capsule TAKE ONE CAPSULE BY MOUTH EVERY DAY , Not-Taking Meloxicam 15 MG Tablet 1 tab(s) orally once a day , Medication List reviewed and reconciled with the patient Objective: * Vitals: Assessment: * Assessment: 1. A bnormal kidney function - N28.9 2 . D yslipidemia - E78.5 ?3. V itamin D deficiency - E55.9 4 . A bnormal PSA - R97.20 ? Plan: * Treatment: Value Reference Range C ystatin C, Serum 0.96 0.71-1.21 - mg/L * Aimee Bryant 05/23/2025 08:09:56 PM EST > [facility] 2.?Dyslipidemia?LAB: P-Comprehensive Metabolic Panel (CMP) (Collection Date & Time - 05/08/2025 07:47 AM)?Normal* Value Reference Range A /G Ratio 1.7 1.1-2.5 - * A lbumin 4.3 3.5-5.3 - g/dL * A lkaline Phosphatase 74 40-129 - IU/L * A LT (SGPT) 20 <5-55 - IU/L * A ST (SGOT) 25 <5-46 - IU/L * B ilirubin, Total 0.8 <0.2-1.2 - mg/dL * B UN 21 8-23 - mg/dL * C alcium 9.7 8.6-10.4 - mg/dL * C hloride 105 97-108 - mmol/L * C O2 27 20-32 - mmol/L * C reatinine 1.18 0.70-1.30 - mg/dL * G lucose 92 65-99 - mg/dL * P otassium 4.5 3.5-5.3 - mmol/L * S odium 141 135-145 - mmol/L * P rotein 6.8 6.0-8.3 - g/dL * e GFR by Creatinine 67 >59 - mL/min/1.73m2 * Aimee Bryant 05/23/2025 08:09:56 PM EST > [facility] ?LAB: P-Lipid Panel (Collection Date & Time - 05/08/2025 07:47 AM)?LDL 40* Value Reference Range C holesterol / HDL Ratio 2.37 <4.99 - Ratio * C holesterol 97 <200 - mg/dL * H DL Cholesterol 41 >40 - mg/dL * L DL Cholesterol (Calculation) 40 <100 - mg/d L * L DL/HDL Ratio 0.97 <2.49 - Ratio * N on-HDL Cholesterol 56 <130 - mg/dL * T riglycerides 81 <150 - mg/dL * L ipid Panel Footnote See Below - * Aimee Bryant 05/23/2025 08:09:56 PM EST > [facility] ?LAB: P-Microalbumin/Creatinine, Random Urine Sample (Collection Date & Time - 05/08/2025 07:47 AM)?Normal* Value Reference Range A lbumin/Creatinine Ratio, Urine 6 0-30 - ug /mg * C reatinine, Urine 180.0 - mg/dL * M icroalbumin, Urine, Random 1.0 - mg/dL * Aimee Bryant 05/23/2025 08:09:56 PM EST > [facility] ?LAB: CBC Fingerstick (in house) (Collection Date & Time - 05/08/2025)* Value Reference Range w bc 6.1 3.5 - 10 * l ym 19.0% 15 - 50 * m id 5.4% 2 - 15 * g ran 75.6% 35 - 80 * r bc 4.99 3.5 - 5.5 * h gb 15.4 11.5 - 16.5 * h ct 45.7 35 - 55 * m cv 91.6 75 - 100 * m ch 31.0 25 - 35 * m chc 33.8 31 - 38 * p lat 109 100 - 400 * Courtney Hess 05/08/2025 11 :52:32 AM EDT > 3.?Abnormal PSA?LAB: P-PSA (Collection Date & Time - 05/08/2025 07:47 AM)?8.42* Value Reference Range P SA 8.42 H <4.00 - ng/mL * Aimee Bryant 05/23/2025 08:09:56 PM EST > [facility] * Procedure Codes: 8 5025 CBC WITH AUTO DIFF * Images: Billing Information: * Visit Code: * Procedure Codes: 99835 CBC WITH AUTO DIFF. * Electronic signature of Lachelle Abernathy MD on 06/25/2025 at 07:46 AM EST Sign off status: Pending * Provider: Lachelle Abernathy M.D. Date: 1 Generated for Lisandra otoole/Marvin/Hubert on: 1 08/26/2024 07:46 AM EST
--- OUTSIDE RECORDS SUMMARY | 2025-05-12 04:45 | XMS_ITS ---
Author Organization [facility] Address [address] [facility] [address] [place], [place] [address] Care Team Providers Care Pecan Picker Name Role Phone Lachelle Abernathy Primary Care Provider [phone] [facility] [phone] REASON FOR VISIT flu shot Medications Medication SIG (Take, Route, Frequency, Duration) Notes Start Date End Date Status Meloxicam 15 MG 1 tab(s) orally once a day; Duration: 30 day(s) 06/08/2019 Not-Taking Ramipril 2.5 mg TAKE ONE CAPSULE BY MOUTH EVERY DAY; Duration: 90 Not-Taking Rosuvastatin Calcium 20 mg 1 tablet Orally Once a day; Duration: 90 days Active Immunizations Vaccine Route Administration Date Status Comme nts Fluzone High Dose (65yr and older) IM Intramuscular 05/12/2025 Administered Encounters Encounter Location Date Provider Diagnosis [facility] [address] [facility] [address] [place] [id number] 05/12/2025 [facility] Encounter for immunization Z23 Assessments Encounter Date Diagnosis (ICD Code) Assessment Notes Treatment Notes Treatment Clinical Notes Section Notes 05/12/2025 Encounter for immunization (ICD-10 - Z23) Plan Of Treatment No Information Progress Notes * Marquis BRY[birth year]DOB:1 07/20/1954 (70 yo M)Acc No.[id number]:05/12/2025 Patient: Jesus NAVARROMarquis Provider: Vipul Seals M.D. :1955 A ge:69 Y S ex:Male Date:05/12/2025 Address:[facility] [id number] Pcp:Lachelle Abernathy Subjective: * Chief Complaints: * 1 . Flu shot. * Medical History: * Medications: T aking [...] : 0.5 mL (Route: Intramuscular) given by Courtney Hess on Left Deltoid (Encounter for immunization) * Images: Billing Information: * Visit Code: * Procedure Codes: * Electronic signature of Ekaterina Seals MD on 06/25/2025 at 07:44 AM EST Sign off status: Pending * Provider: Vipul Seals M.D. Date: 1 Generated for Lisandra otoole/Marvin/Uyenitting on: 08/26/2024 07:44 AM EST
--- OUTSIDE RECORDS SUMMARY | 2025-06-25 07:45 | XMS_ITS | Clinical Summary ---
Author Organization [employer] ([place], [place], [place], [place], [place]) Address [address] [place] [address] Care Team Providers Care Pumper Gauger Name Role Phone Unavailable Primary Care Provider Unavailabl e Allergies No known active allergies Medications rosuvastatin (CRESTOR) 20 MG tablet Take 20 mg by mouth daily. Active ergocalciferol, vitamin D2, (VITAMIN D2 ORAL) Take by mouth. Active aspirin 81 MG EC tablet Take 81 mg by mouth daily. Active Active Problems No known active problems Resolved Problems Problem Noted Date Diagnosed Date Resolved Date Hypertension 09/07/2022 09/07/2022 Social History Tobacco Use Types Packs/Day Years Used Date Smoking Tobacco: Never Smokeless Tobacco: Never Alcohol Use Standard Drinks/Week Comments Never 0 (1 standard drink = 0.6 oz pur e alcohol) Family and Community Support Answer Len e Recorded Help with Day to Day Activities Not on file 08/06/2023 Feeling Lonely or Isolated Not on file 08/06 Educational Attainment Answer Date Goran rded Speak language other than Kazakh at home Not on file 08/06/2023 Want help with school or training Not on file 08/06/2023 Substance Use Answer Date Recorded Used prescription meds for non-medical reasons N ot on file 08/06/2023 Used illegal drugs past 12 months Not on file 08/06/2023 Sex and Gender Information Value Date Recorded Sex Assigned at Male 01/13/2022 9:02 PM CDT Legal Sex Male 9:02 PM CDT Gender Identity Male 01/13/2022 9:02 PM CDT Sexual Orientation Not on file Last Filed Vital Signs Vital Sign Reading Time Taken Comments Blood Pressure 141/84 09/07/2022 10:26 AM EST Pulse 62 09/07/2022 10:26 AM EST Temperature - - Respiratory Rate 16 09/07/2022 10:26 AM EST Oxygen Saturation - - Inhaled Oxygen Concentration - - Weight 97.2 kg (214 lb 3.2 oz) 09/07/2022 10:26 AM EST Height 185.4 cm (6' 1 ) 09/07/2022 10:26 AM EST Body Mass Index 28.26 09/07/2022 10:26 AM EST Plan of Treatment Health Maintenance Due Date Last Done Comments CT Colonography 1955 Colonoscopy 1955 Colorectal Cancer Screening 1955 FOBT/FIT 1956 Fit-DNA (Cologuard) 1956 Sigmoidoscopy 1956 Depression Screening (12+) 1968 Hepatitis C Screening 1974 DTAP/TDAP/TD VACCINES (1 - Tdap) 1975 Pneumococcal 50+ years (1 of 1 - PCV) 2006 Shingles Vaccine (Zoster) (1 of 2) 2006 Respiratory Syncytial Virus (RSV) Adult or (1 - Risk 60-74 years 1-dose series) 2016 Tobacco Cessation Counseling and Screening (12+) 09/07/2023 09/07/2022 Falls Risk Screening 07/19/2024 COVID-19 VACCINE ( - 2024- season) 2025 05/23/2021, 08/14/2020, 07/16/2020 Influenza Vaccine (#1) 2025 05/19/2022 Insurance [employer] CHOICE PPO Advance Directives For more information, please contact: [phone] Documents on File Type Date Recorded Patient Bottom Precipitator Operator Expl anation Advance Directives and Ayan vargas Will 09/18/2022 10:21 AM
--- OUTSIDE RECORDS SUMMARY | 2025-06-25 07:45 | XMS_ITS ---
Author Organization Unknown Vital Signs BpStanding BpSitting BpSupine Date Temperature HeartRate Weight Hei ght Spo2 Respiration Bmi HeadCircumference FieldCount TimeRecorded NeckCircumferen ce WaistCircumference Pulse Custom 122/78 10/20 00:00 :00 97.8 62 212,9.6 0 4 06/22/2025 11:00:00
--- OUTSIDE RECORDS SUMMARY | 2025-06-25 07:45 | XMS_ITS | Patient Health Record ---
[facility] Address [address] [place] [address] [facility] [address] [place] [id number] Care Team Providers Care Shop Tech Name Role Phone Lachelle Abernathy Primary Care Provider [phone] [facility] Unavailable [phone] Allergies No Known Allergies Results Component Value Reference Range Notes P-Microalbumin/Creatinine, R andom Urine Sample Reviewed date:05/23/2025 08:10:09 PM Interpretation:Normal Performing Lab: Notes/Report: Test performed by [facility] [address] [place], [place] [address] [place] , [place] [address] Erik Man MD, Balance And Hairspring Assembler CLIA: [id number] Albumin/Creatinine Ratio, Urine 6 0-30 ug/mg Microalbumin, Urine, Random 1.0 Creatinine, Urine 180.0 P-PSA Reviewed date:05/23/2025 08:10:09 PM Interpretation:8.42 Performing Lab: Notes/Report: Test performed by [facility] [address] [place], [place] [address] [place] , [address], [place] [address] Eirk Man MD, Balance And Hairspring Assembler CLIA: [id number] PSA 8.42 <4.00 ng/mL Please note this is an ultrasensitive PSA assay with a lower limit of detection of 0.014 ng/mL. This test is performed by the Kevin ECLIA methodology. Values obtained with different assay methods or kits cannot be directly compared. P-Lipid Panel Reviewed date:05/23/2025 08:10:09 PM Interpretation:LDL 40 Performing Lab: Notes/Report: Test performed by [facility] [address] [place], [place] [address] [place] , [address], [place] [address] Erik Man MD, Balance And Hairspring Assembler CLIA: [id number] Lipid Panel Footnote See Below *Based on optimal reference values. Please refer to the DOS for additional information regarding diagnostic lipid reference ranges, patient management based on the recently updated lipid guidelines ([place] [employer]/[place] [employer] Task Force on Clinical Practice [...] Results: 40 Units: mg/dL % Change: +14% P-Comprehensive Metabolic Pa justyn (CMP) Reviewed date:12/24/2024 08:35:25 PM Interpretation:BUN 25 Performing Lab: Notes/Report: Test performed by [facility] [address] [place], [place] [address] [place] , [address], [place] [address] Erik Man MD, Balance And Hairspring Assembler CLIA: [id number] Sodium 143 135-145 mmol/L Potassium 4.6 3.5-5.3 [...] 0.5 <0.2-1.2 mg/dL A/G Ratio 1.8 1.1-2.5 CBC Venipuncture (in house) Reviewed date:10/30/2024 04:22:48 [...] - 38 platlet 72 100 - 400 P-PSA Reviewed date:12/24/2024 08:35:25 PM Interpretation:7.51 Performing Lab: Notes/Report: Test performed by [facility] [address] [place] [address] , [address], [place] [address] Erik Man MD, Balance And Hairspring Assembler CLIA: [id number] PSA 7.51 <4.00 ng/mL Please note this is an ultrasensitive PSA assay with a lower limit of detection of 0.014 ng/mL. This test is performed by the Kevin ECLIA methodology. Values obtained with different assay methods or kits cannot be directly compared. CBC Fingerstick (in house) Reviewed date:05/08/2025 12:52:20 [...] Interpretation:Normal Performing Lab: Notes/Report: Test performed by [facility] [address] [place] [address] , [address], [place] [address] Erik Man MD, Balance And Hairspring Assembler CLIA: [id number] Sodium 141 135-145 mmol/L Potassium 4.5 3.5-5.3 [...] 0.8 <0.2-1.2 mg/dL A/G Ratio 1.7 1.1-2.5 L-Vxottyzv-O Reviewed date:05/23/2025 08:10:09 PM Interpretation:Normal Performing Lab: Notes/Report: Test performed by [facility] [address] [place] [address] , [address], [place] [address] Erik Man MD, Balance And Hairspring Assembler CLIA: [id number] Cystatin C, Serum 0.96 0.71-1.21 mg/L eGFR by Creatinine and Cysta tin C Reviewed date:05/23/2025 08:10:09 PM Interpretation:Normal Performing Lab: Notes/Report: Test performed by [facility] [address] [place] [address] [address], [place] [address] Erik Man MD, Balance And Hairspring Assembler CLIA: [id number] eGFR by Creatinine and Cystatin C 77 >59 mL/min/1.73m2 Reason For Referral No Information Medications Medication SIG (Take, Route, Frequency, Duration) Notes Start Date End Date Status Meloxicam 15 MG 1 tab(s) orally once a day; Duration: 30 day(s) 06/08/2019 Not-Taking Ramipril 2.5 mg TAKE ONE CAPSULE BY MOUTH EVERY DAY; Duration: 90 Not-Taking Rosuvastatin Calcium 20 mg 1 tablet Orally Once a day; Duration: 90 days Active Immunizations Vaccine Route Administration Date Status Comme nts xFluzone Intradermal (18-64yrs)-trivalent ID Intradermal 04/22/2012 Administered xFluzone (6mos and older)-trivalent IM Intramuscular 05/11/2013 Administered xFluzone (6mos and older)-trivalent IM Intramuscular 05/09/2014 Administered xFlu shot-36 months and older IM Intramuscular 06/06/2005 Administered xFlu shot-36 months and older IM Intramuscular 06/02/2007 Administered xFlu shot-36 months and older IM Intramuscular 05/24/2008 Administered xFlu shot-36 months and older IM Intramuscular 06/17/2010 Administered tuberculin (ppd) ID Intradermal 08/23/2006 Administered tuberculin (ppd) ID Intradermal 10/24/2007 Administered tuberculin (ppd) SC Subcutaneous 12/17/2014 Administered tuberculin (ppd) SC Subcutaneous 12/23/2015 Administered tuberculin (ppd) SC Subcutaneous 01/04/2017 Administered n eg tuberculin (ppd) ID Intradermal 08/08/2024 Administered Shingrix IM Intramuscular 08/07/2022 Administered Shingrix IM Intramuscular 12/17/2022 Administered Prevnar (PCV20) IM Intramuscular 05/14/2023 Administered ppd ID Intradermal 10/29/2008 Administered ppd TD Transdermal 11/04/2009 Administered ppd ID Intradermal 11/04/2010 Administered ppd SC Subcutaneous 11/10/2011 Administered ppd ID Intradermal 11/14/2012 Administered ppd ID Intradermal 12/12/2013 Administered ppd SC Subcutaneous 02/15/2018 Administered ppd ID Intradermal 02/20/2019 Administered ppd ID Intradermal 04/09/2020 Administered ppd ID Intradermal 12/10/2021 Administered Hepatitis A (adult) IM Intramuscular 12/14/2018 Administer ed Hepatitis A (adult) IM Intramuscular 05/01/2020 Administer ed H1N1 flu vaccine IM Intramuscular 05/09/2009 Administered Fluzone Quad (6months&older) IM Intramuscular 2016 Administered Fluzone Quad (6months&older) IM Intramuscular 05/22/2017 Administered Fluzone Quad (6months&older) IM Intramuscular 05/07/2018 Administered Fluzone Quad (6months&older) IM Intramuscular 2019 Administered Fluzone Quad (6months&older) IM Intramuscular 05/01/2020 Administered Fluzone Intradermal Quad private(18-64yrs) ID Intradermal 05/29/2015 Administered Fluzone High Dose (65yr and older) IM Intramuscular 06/07/2021 Administered Fluzone High Dose (65yr and older) IM Intramuscular 05/19/2022 Administered Fluzone High Dose (65yr and older) IM Intramuscular 05/14/2023 Administered Fluzone High Dose (65yr and older) IM Intramuscular 05/12/2024 Administered Fluzone High Dose (65yr and older) IM Intramuscular 05/12/2025 Administered COVID 19 Moderna Unknown 07/16/2020 Administered COVID 19 Moderna Unknown 08/14/2020 Administered COVID 19 Moderna Unknown 05/23/2021 Administered Problems Problem Type SNOMED Code ICD Code Onset Dates Problem Status W/U Status Risk Notes Problem Sebaceous cyst (167598662) Sebaceous cyst (706.2) Active confirmed Problem Vitamin D deficiency (88207371) Vitamin D deficiency (E55.9) Active confirmed Problem Diverticulitis (62735802) Diverticulitis (K57.92) Active confirmed Problem Peripheral neuropathy (394492123) Peripheral neuropathy (G62.9) Active confirmed Problem Cataract (205546329) Cataracts, bilateral (H26.9) Active confirmed Problem Dyslipidemia (659195705) Dyslipidemia (E78.5) Active confirmed Problem Retinal disorder (77814942) Retinal disease, 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) Active confirmed Problem Abnormal x-ray examination (R93.89) Active confirmed Vital Signs Heart Rate 62 /min 10/20/2024 Blood pressure diastolic 78 mm Hg 10/20/2024 Blood pressure systolic 122 mm Hg 10/20/2024 Weight 212.6 lbs 10/20/2024 Encounters Encounter Location Date Provider Diagnosis [facility] [facility] [address] [place], [place] [phone] 08/08/2024 [facility] Screening-pulmonary TB Z11.1 [facility] [facility] [address] [place], [place] [id number] 08/10/2024 [place] [facility] [address] [place], [place] [id number] 10/20/2024 Lachelle Abernathy Pre-op evaluation Z01.818 ; Cataracts, bilateral H26.9 ; Retinal disease, bilateral H35.9 ; Elevated PSA R97.20 and Dyslipidemia E78.5 [facility] [address] [facility] [address] [place], [place] [id number] 10/24/2024 Lachelle Abernathy Pre-op evaluation Z01.818 ; Cataracts, bilateral H26.9 and Elevated PSA R97.20 [facility] [address] [place] [facility] [address] [place], [place] [id number] 05/08/2025 Lachelle Abernathy Abnormal kidney function N28.9 ; Dyslipidemia E78.5 ; Vitamin D deficiency E55.9 and Abnormal PSA R97.20 [facility] [facility] [address] [place], [place] [phone] 05/12/2025 [facility] [place] Encounter for immunization Z23 [facility] [address] [place] [facility] [address] [place], [place] [id number] 06/30/2024 Lachelle Abernathy [facility] [address] [place] [address] [facility] [address] [place] [id number] 10/25/2024 Lachelle Abernathy [facility] [facility] [address] [place] [id number] 04/02/2025 Lachelle Abernathy Snoring R06.83 Assessments Encounter Date Diagnosis (ICD Code) Assessment Notes Treatment Notes Treatment Clinical Notes Section Notes 08/08/2024 Screening-pulmona ry TB (ICD-10 - Z11.1) 10/20/2024 Pre-op evaluation (ICD-10 - Z01.818) CLEARED FOR SURGERY 10/20/2024 Cataracts, bilateral (ICD-10 - H26.9) 10/24/2024 Pre-op evaluation (ICD-10 - Z01.818) CLEARED FOR SURGERY 10/24/2024 Cataracts, bilateral (ICD-10 - H26.9) 04/02/2025 Snoring (ICD-10 - R06.83) 05/08/2025 Abnormal kidney function (ICD-10 - N28.9) 05/12/2025 Encounter for immunization (ICD-10 - Z23) 05/08/2025 Dyslipidemia (ICD-10 - E78.5) 10/24/2024 Elevated PSA (ICD-10 - R97.20) Repeat PSA 10/20/2024 Retinal disease, bilateral (ICD-10 - H35.9) 10/20/2024 Elevated PSA (ICD-10 - R97.20) Repeat PSA 05/08/2025 Vitamin D deficiency (ICD-10 - E55.9) 05/08/2025 Abnormal PSA (ICD-10 - R97.20) 10/20/2024 Dyslipidemia (ICD-10 - E78.5) Plan Of Treatment Pending Test Test Name Order Date sleep study 04/02/2025 Insurance Providers Payer Name Payer Address Payer Phone Subscriber Number Group Number Insured Name Patient Relationship to Insured Coverage Start Date Coverage End Date MEDICARE PART B [address] [address] [place] [address] [id number] Marquis Bryant Self - patient is the insured HUMAN [address] [address] [place] [address] [phone] [id number] Marquis Bryant Self - patient is the insured Medical (General) History Medical History History ICD Code Dr. Boggs, Cardiology eval in July 20 025, EKG elevated PSA Bilateral epiretinal membrane - Dr. Pedro bonds Surgical History Surgery Date(Month/Year) T&A - Dr. Elliott 1961 Excision of osteochondroma left proximal tibia - Dr. Ophelia Dudley 06/1973 Right inguinal herniorrhaphy - Dr. Graff 08/30/2024
--- OUTSIDE RECORDS SUMMARY | 2025-06-25 07:45 | XMS_ITS | Clinical Summary ---
Author Organization [facility] Address [address] [place] [address] Care Team Providers Care Automotive Parts Person Name Role Phone Pierre Abernathy MD Primary Care Provider [phone] Allergies No known active allergies Medications aspirin 81 MG EC tablet Take 1 tablet by mouth Daily. Active rosuvastatin (CRESTOR) 20 MG tablet Take 1 tablet by mouth Daily. Active ascorbic acid (VITAMIN C) 1000 MG tablet Take 1 tablet by mouth Daily. Active Vitamin D, Cholecalciferol, (CHOLECALCIFEROL ) 10 MCG (400 UNIT) tablet Take 1 tablet by mouth Daily. Active Family History Relation Name Status Comments Father Mother Social History Tobacco Use Types Packs/Day Years Used Date Smoking Tobacco: Never Passive Smoke Exposure: Never Smokeless Tobacco: Never Tobacco Cessation:Counseling Given: Not Answered Alcohol Use Standard Drinks/Week Comments Not Currently 0 (1 standard drink = 0.6 oz pur e alcohol) social Sex and Gender Information Value Date Recorded Sex Assigned at Not on file Legal Sex Male 10:48 AM EDT Gender Identity Not on file Sexual Orientation Not on file Last Filed Vital Signs Vital Sign Reading Time Taken Comments Blood Pressure 134/70 07/27/2024 9:48 AM EST Pulse - - Temperature - - Respiratory Rate - - Oxygen Saturation 97% 07/27/2024 9:48 AM EST Inhaled Oxygen Concentration - - Weight - - Height - - Body Mass Index - - Plan of Treatment Upcoming Encounters Date Type Department Care Team (Late st Contact Info) Description 11/08/2025 9:45 AM EDT Office Visit [facility] [address] [place] [address] [place] [address] Sedrick Price MD [address] [place] [address] Health Maintenance Due Date Last Done Comments LIPID PANEL 1956 TDAP/TD VACCINES (1 - Tdap) 1975 COLOGUARD 2001 COLON CANCER SCREENING 5 YEA R SIGMOIDOSCOPY 2001 COLONOSCOPY [address] CANCER SCREENING 2001 CT COLONOGRAPHY 2001 FECAL OCCULT BLOOD TEST 2001 FIT Testing (1 year) 2001 Pneumococcal Vaccine 50+ (1 of 1 - PCV) 2006 ZOSTER VACCINE (1 of 2) 2006 ANNUAL WELLNESS VISIT 07/27/2024 HEPATITIS C SCREENING 07/27/2024 INFLUENZA VACCINE 02/16/2025 05/19/2022 COVID-19 Vaccine ( season) 2025 05/23/2021, 08/14/2020, 07/16/2020 Insurance MEDICARE A & B Member Subscriber Plan / Payer (Ef fective 2021-Present) Name:Marquis Bryant Member ID:[id number] Relation to Subscriber:Self Name:Marquis Bryant Subscriber ID:[id number] Payer ID:[id number] Group ID:Not on file Type:Not on file Address: [facility] [id number] [address] Care Teams Automotive Parts Person Relationship Specialty Start Date End Date Pierre Abernathy MD [address] [place] [facility] [address] [place] [address] PCP - General Family Medicine 06/23/24
--- OUTSIDE RECORDS SUMMARY | 2025-06-25 07:45 | XMS_ITS | Referral Summary ---
Author Organization [employer] ([place], [place], [place], [place], [place]) Address [address] [place] [address] Care Team Providers Care Tissue Coordinator Name Role Phone Unavailable Primary Care Provider [...] Date Goran rded Speak language other than Armenian at home Not on file 08/06/2023 Want [...] 09/07/2022 10:26 AM EST Plan of Treatment Not on file Insurance [employer] CHOICE PPO Advance Directives For more information, please contact: [phone] Documents on File Type Date Recorded Patient Newspaper Deliverer Expl anation Advance Directives and Livin g Will 09/18/2022 10:21 AM
== END ==
PROVIDERS: PCP Family Medicine; Visit Provider Family Medicine
DX: G47.33 Obstructive sleep apnea (adult) (pediatric) (principal)
CPT/HCPCS: G0399